=== PATIENT | female | born 1965 | race Caucasian/White ===

== ENCOUNTER 2020-07-03 12:30 | Inpatient (IN) | payer OTHER ==
[~2020-07-03] VITALS: Ht 165.1 cm; Wt 108.9 kg
[2020-07-03] MEDS ORDERED: AVAPRO300 MG PO (16:15)
[2020-07-03] MEDS ORDERED: TOPROL XL50 M1 PO (16:15)
[2020-07-03] MEDS ORDERED: LIPITOR20 MG PO (16:15)
[2020-07-03] MEDS ORDERED: HYDROCHLOROTHIA25 MG PO (16:15)
[2020-07-03] MEDS ORDERED: NORVASC5 MG PO (16:16)
== END 2020-07-07 16:17 | disposition home or self-care (01) | DRG 741 ==
LOC: OB/GYN 07-05 05:20 → O/R 07-05 05:20 → OB/GYN 07-05 10:31 → SURH 07-05 11:45 → OB/GYN 07-07 16:17
PROVIDERS: ADMIT Specialist; ATTEND Specialist
PROC: 0UT20ZZ Resection of Bilateral Ovaries, Open Approach (ICD-10-PCS; 2020-07-05)
PROC: 0UT70ZZ Resection of Bilateral Fallopian Tubes, Open Approach (ICD-10-PCS; 2020-07-05)
PROC: 07BC0ZZ Excision of Pelvis Lymphatic, Open Approach (ICD-10-PCS; 2020-07-05)
PROC: 0UT90ZZ Resection of Uterus, Open Approach (ICD-10-PCS; principal; 2020-07-05 11:45)
DX: C54.1 Malignant neoplasm of endometrium (principal); N72 Inflammatory disease of cervix uteri; N80.0 Endometriosis of uterus; N80.1 Endometriosis of ovary; I10 Essential (primary) hypertension; E66.9 Obesity, unspecified